=== PATIENT | female | born 2000 | race Caucasian/White ===

== ENCOUNTER 2024-11-11 08:28 | Emergency (ER) | payer OTHER, SELFPAY ==
[2024-11-11 08:28] VITALS: BP 124/77; PULSE 72; RESP 14; TEMP 36; O2SAT 98; BMI 34.5
--- NOTE | 2024-11-11 08:40 | ED.VIS.GI ---
HPI HPI - GI History of Present Illness Chief Complaint: Abd Pain Narrative Narrative: 24-year-old female past medical history of ADHD and anxiety presents with her mother because of lower abdominal pain that began this morning. She denies any fevers or chills. No dysuria or hematuria, last bowel movement yesterday and normal. She states that after she awoke this morning, she was getting ready for work and experienced bilateral lower abdominal pain and pelvic pain. It was worse when she was standing and moving around. Additionally, she states that her lower abdomen felt tight, and it was doubling her over. No exacerbating or alleviating factors. [facility] Medical History (Updated 11/11/24 @ 12:20 by Salvador Kennedy MD) PCOS (polycystic ovarian syndrome) Asthma Home Medications ?Medication ?Instructions ?Recorded ?Last Taken ?Type atomoxetine 80 mg capsule 80 mg PO DAILY 11/11/24 11/10/24 History duloxetine 20 mg capsule,delayed 20 mg PO DAILY 11/11/24 11/10/24 History release (Cymbalta) Allergy/AdvReac Type Severity Reaction Status Date / Time No Known Allergies Allergy Verified 11/11/24 08:57 Social History Smoking Status: Current every day smoker tobacco type: e-cigarettes ROS ROS ED ROS Narrative Constitutional: No fever, no chills. Cardiovascular: No chest pain. No palpitations. No pedal edema. Respiratory: No cough, no shortness of breath. Abdominal: Bilateral lower quadrant abdominal pain. 1 episode of nausea and vomiting. No hematemesis. No diarrhea. Genitourinary: No dysuria. No hematuria. Musculoskeletal: No myalgias. No arthralgias. Neurologic: No headaches. No dizziness. No lightheadedness. Skin: No rash. No change in color. Psychiatric: No depression. No anxiety. EXAM Physical Exam Narrative Exam Narrative: Afebrile. Vital signs noted. Nontoxic-appearing. Cardiovascular examination reveals a regular rate and rhythm. Lungs are clear to auscultation bilaterally. The abdomen is soft with mild tenderness to palpation in the right lower quadrant. Negative peritoneal signs, no guarding or rebound. Positive bowel sounds. Neurological examination is nonfocal and nonlateralizing. Const Vital Signs: 11/11/24 08:28 11/11/24 10:28 11/11/24 12:00 Temperature 96.8 F L Temperature Source Temporal Pulse Rate 72 57 L 66 Respiratory Rate 14 16 16 Blood Pressure 124/77 H 111/69 104/69 Blood Pressure Mean 92 83 80 Pulse Ox 98 100 100 Oxygen Delivery Method Room Air Room Air Room Air MDM MDM MDM Narrative Medical decision making narrative: Differential diagnosis includes but not limited to acute appendicitis versus ovarian pathology such as ovarian cyst/rupture versus nonspecific abdominal pain versus abdominal wall pain. Serum test will be obtained to help rule out ectopic . I do feel that imaging is indicated. Basic laboratory work will be drawn as well. I reviewed her laboratory work and she has normal white count of 7.9, hemoglobin normal 12.9 and platelet count normal at 221. CMP is grossly unremarkable with normal sodium of 141 and potassium 3.6. BUN 7 and creatinine 0.67, no evidence of dehydration. AST is low at 12 which I think is nonspecific. Lipase normal at 22 so I doubt pancreatitis. Serum test is negative. Urinalysis negative for infection. I do not feel she needs antibiotics. Reviewed the radiology report of the CT of the abdomen and pelvis. There is a moderate amount of stool in the colon especially on the right, small amount of free fluid in the right cul-de-sac and left ovarian cyst. Appendix visualized and appears normal. Upon repeat examination, patient states she feels the same. She will be given Toradol for analgesia and pelvic ultrasound obtained at the suggestion of radiology. I reviewed the radiology report of the ultrasound of the pelvis. There are 2 adjacent ovarian cyst on the left with moderate amount of free fluid in the pelvis. I feel this is probably more in tune with a ruptured ovarian cyst. Upon repeat examination she is resting comfortably on the cot. I feel she can be discharged safely home with follow-up. She was referred to the [facility] on-call. Return instructions to the emergency department were reviewed. Disposition is discharged home in stable patient. History & Record Review Discussion w/independent historian: Patient and Family Lab Data Attestation: I reviewed the patient's lab results. Labs: Laboratory Results - last 24 hr 11/11/24 11/11/24 08:59 09:50 WBC 7.9 RBC 4.37 Hgb 12.9 Hct 39.6 MCV 90.6 MCH 29.5 MCHC 32.6 RDW Std Deviation 42.0 RDW Coeff of Barby 12.7 Plt Count 221 MPV 10.0 Immature Gran % (Auto) 0.300 Neut % (Auto) 63.4 Lymph % (Auto) 24.6 Whitley % (Auto) 7.4 Eos % (Auto) 3.7 Baso % (Auto) 0.6 Absolute Neuts (auto) 5.0 Absolute Lymphs (auto) 1.95 Nucleated RBC % 0 Sodium 141 Potassium 3.6 Chloride 106 Carbon Dioxide 29.0 Anion Gap 5 BUN 7 Creatinine 0.67 Estim Creat Clear Calc 150.80 Est GFR (MDRD) Af Amer 137 Est GFR (MDRD) Non-Af 113 BUN/Creatinine Ratio 10.4 Glucose 86 Calcium 9.0 Total Bilirubin 0.40 AST 12 L ALT 14 Alkaline Phosphatase 86 Total Protein 7.6 Albumin 3.6 Globulin 4.0 Albumin/Globulin Ratio 0.9 Lipase 22 Serum , Qual NEGATIVE Urine Color Yellow Urine Clarity Clear Urine pH 7.0 Ur Specific Austin 1.005 Urine Protein 15 H Urine Glucose (UA) Normal Urine Ketones Negative Urine Occult Blood Negative Urine Nitrite Negative Urine Bilirubin Negative Urine Urobilinogen Normal Ur Leukocyte Esterase 25 H Urine RBC 0 SEEN Urine WBC 0-5 SEEN Ur Squamous Epith Cells 0-5 SEEN Urine Bacteria 3+ Urine Mucus 0 SEEN Radiography Diagnostic Testing: Clinical Impression(s) from Imaging Studies Abdomen/Pelvis CT 11/11/24 08:44 IMPRESSION: Small amount of free fluid is seen in the pelvis more prominent on the right side. Left ovarian cyst. Correlation with a pelvic sonogram is recommended for further evaluation. Electronically Signed: Ted Austin MD at 10:24 EST , Transvaginal US 11/11/24 10:37 IMPRESSION: 2 cysts are seen in the left ovary corresponding to the CT findings. Small to moderate degree of free fluid in the pelvis. Electronically Signed: Ted Austin MD at 12:02 EST , Discharge Plan Triage Chief Complaint: Abd Pain ED Provider: Salvador Kennedy Dx/Rx/DC Orders Clinical Impression: Abdominal pain, Nausea and vomiting, Free fluid in pelvis, Constipation, Ovarian cyst Instructions: ED Abdominal Pain Unkn Cause Fem, ED Constipation (Adult), ED Ovarian Cyst Prescriptions: No Action atomoxetine 80 mg capsule 80 mg PO DAILY duloxetine [Cymbalta] 20 mg capsule,delayed release(DR/EC) 20 mg PO DAILY Primary Care Provider: Care Physician,No Primary Referrals: Nani Eagle MD [Med Staff - Active Staff] - As soon as possible Care Physician,No Primary [Primary Care Provider] - Activity Restrictions/Additional Instructions: You might want to try [id number] gentle laxative like MiraLAX once a day for the next week. Return to the emergency department with fever, increased pain, new or worsening symptoms. Print Language: Serbian Disposition Disposition: Home, Self Care
--- NOTE | 2024-11-11 08:44 | CT_ITS ---
STUDY: CT ABDOMEN AND PELVIS WITH CONTRAST REASON FOR EXAM: Female, 24 years old. Lower abdominal pain with vomiting RADIATION DOSAGE (If Supplied By Facility): CTDIvol = ( 17.16 ) mGy, DLP = ( 1091.23 ) mGycm TECHNIQUE: Transaxial images were obtained from the dome of the diaphragm to the symphysis pubis without oral contrast. IV 100mL Isovue-370 was administered. Sagittal and coronal images were reconstructed. Individualized dose optimization techniques were used for this CT. COMPARISON: None. FINDINGS: The visualized lung bases are unremarkable. The visualized portions of the heart are within normal limits. Normal liver. Normal gallbladder and extrahepatic biliary system. Normal spleen. Normal pancreas. Normal bilateral adrenal glands. Normal right kidney. Normal left kidney. There is a small hiatal hernia. Normal small intestine. Moderate amount of fecal material is seen in the colon. The appendix is visualized and appears normal. Normal abdominal aorta. Normal inferior vena cava. Normal retroperitoneum. Normal urinary bladder. Small amount of free fluid is seen in the right side of the cul-de-sac. There is a 3.5 cm x 2.1 cm left ovarian cyst. Correlation with a pelvic sonogram is recommended for further evaluation. Normal abdominal wall. Normal osseous structures. CT/Abdomen/Pelvis W IV Cont ONLY IMPRESSION: Small amount of free fluid is seen in the pelvis more prominent on the right side. Left ovarian cyst. Correlation with a pelvic sonogram is recommended for further evaluation. Electronically Signed: Ted Austin MD at 10:24 EST ,
[2024-11-11 09:05] LABS: Absolute Lymphocyte Count 1.95 X10^3/uL (0.83-4.51); Basophil# 0.05 X10^3/uL; Basophil% 0.6 % (0-1); Eosinophil# 0.29 X10^3/uL; Eosinophils% 3.7 % (0-5); Hematocrit 39.6 % (37-47); Hemoglobin 12.9 g/dL (12.0-15.0); Lymphocyte # 1.95 X10^3/ul (0.83-4.51); Lymphocyte % 24.6 % (19-41); Mean Corp Hgb Conc 32.6 g/dL (32-36); Mean Corpuscular Hgb 29.5 pg (27.0-32.0); Mean Corpuscular Volume 90.6 fL (81-99); Monocyte# 0.59 X10^3/uL; Monocyte% 7.4 % (0-10); NRBC Flagged by Analyzer 0 % (0-5); Neutrophil # 5.03 X10^3/uL (2.7-7.7); Neutrophil % 63.4 % (47-70); Platelet Count 221 K/mm3 (150-450); RBC Distribution Width CV 12.7 % (11.6-14.6); Red Blood Count 4.37 M/mm3 (4.2-5.4); White Blood Count 7.9 K/mm3 (4.4-11.0)
[2024-11-11 09:28] LABS: Internal QC Validated? YES +Cl - CLEAR BKGD; Pregnancy, Serum, hCG Quali. NEGATIVE Negative
[2024-11-11 09:35] LABS: ALB/GLOB Ratio 0.9 RATIO (0.9-2.4); AST(SGOT) 12 U/L (15-37); Alanine Aminotransfer ALT/SGPT 14 U/L (13-56); Albumin, Serum 3.6 g/dL (3.2-5.0); Alkaline Phosphatase 86 U/L (45-117); Anion Gap 5 (5-15); BUN 7 mg/dL (7-18); BUN/Creat Ratio 10.4 RATIO (10-20); Chloride 106 mmol/L (98-107); Creatinine, Serum 0.67 mg/dL (0.55-1.02); EST Glomerular Filtration Rate 113 mL/min (>60); Est Glom Filt Rate - Afr Amer 137 mL/min (>60); Glucose 86 mg/dL (74-106); Lipase 22 U/L (13-75); Potassium 3.6 mmol/L (3.5-5.1); Protein, Total 7.6 g/dL (6.4-8.2); Sodium Level 141 mmol/L (136-145)
[2024-11-11 10:02] LABS: Mucous, Urine 0 SEEN /hpf (<or=2+); Red Blood Cells-Urine 0 SEEN /hpf (0-5)
[2024-11-11 10:04] LABS: Color, Urine Yellow (Yellow); Glucose, Dipstick Normal (Normal); Ketone-Dipstick Negative (Negative); Leukocyte Esterase-Dipstick 25 /ul (Negative); Nitrite-Dipstick Negative (Negative); Occult Blood-Urine Negative /ul (Negative); Protein-Dipstick 15 mg/dl (Negative); Specific Gravity, Urine 1.005 (1.002-1.030); Urine Bilirubin Dipstick Negative (Negative); Urine Clarity Clear (Clear); Urine Urobilinogen Normal (Normal)
[2024-11-11 10:12] LABS: Bacteria 3+ /hpf (None Seen)
[2024-11-11 10:14] LABS: Squamous Epithelial Cells - UA 0-5 SEEN /hpf (5-10); White Blood Cells 0-5 SEEN /hpf (0-5)
[2024-11-11 10:28] VITALS: BP 111/69; PULSE 57; RESP 16; O2SAT 100
--- NOTE | 2024-11-11 10:37 | US_ITS ---
STUDY: ULTRASOUND OF THE FEMALE PELVIS - COMPLETE REASON FOR EXAM: Female, 24 years old. Pain, free fluid LMP: October 06, 2024. TECHNIQUE: Transvaginal TECHNICAL QUALITY: Adequate. COMPARISON: Comparison is made with prior CT scan done earlier in the day. FINDINGS: The uterus is anteverted and is in a midline position. The uterus measures 7.7 cm x 5.1 cm x 3.8 cm. Normal uterine cervix. The endometrium measures 8 mm in thickness, and is hyperechoic. There is no demonstrated endometrial mass. There is no demonstrated myometrial mass. I.U.D. - The patient does not have an I.U.D. The right ovary is visualized. The right ovary measures 3.4 cm x 2.4 cm x 2.8 cm. There is no right ovarian cyst or ovarian mass. There is no visualized right adnexal mass or complex lesion. There is normal arterial and normal venous vascularity. The left ovary is visualized. The left ovary measures 4.9 cm x 4.4 cm x 3.4 cm. 2 adjacent cysts are seen in the left ovary. The larger measures 2.8 cm x 2.2 cm x 1.6 cm. There is no visualized left adnexal mass or complex lesion. There is normal arterial and normal venous vascularity. There is a moderate amount of fluid in the cul-de-sac. US/Transvaginal Non- IMPRESSION: 2 cysts are seen in the left ovary corresponding to the CT findings. Small to moderate degree of free fluid in the pelvis. Electronically Signed: Ted Austin MD at 12:02 EST ,
[2024-11-11] MEDS: Ketorolac 15 MG/ML Vial IV (10:44)
[2024-11-11 12:00] VITALS: BP 104/69; PULSE 66; RESP 16; O2SAT 100
[2024-11-11 12:29] VITALS: BP 104/69; PULSE 66; RESP 16; TEMP 36.7; O2SAT 100
--- NOTE | 2024-11-11 13:47 | CM.ED ---
Social Work Reason for visit: No PCP SW entered room, introduced self to patient and explained reason for visit. Patient verified that she does not currently have a PCP, [facility] provider list provided. No further needs identified at this time. Veronica Dhillon, [employer] ATT[employer]ER, PROCESS CONTROL MANAGER
== END 2024-11-11 12:31 | disposition home or self-care (01) ==
PROVIDERS: Emergency Provider Emergency Medicine; Visit Provider Emergency Medicine
DX: K59.00 Constipation, unspecified (principal); N83.202 Unspecified ovarian cyst, left side; F17.290 Nicotine dependence, other tobacco product, uncomplicated
CPT/HCPCS: 74177; 76830; 80053; 81001; 83690; 84703; 85025; 96374; 99283; Q9967; A4216